=== PATIENT | female | born 1950 | race Caucasian/White ===

== ENCOUNTER 2024-12-29 17:10 | Inpatient (IN) | payer MEDICARE, OTHER, SELFPAY ==
[2024-12-29 16:08] VITALS: BP 139/73
[2024-12-29 17:06] LABS: Glucose - Point of Care 130 mg/dl (70-99)
--- NOTE | 2024-12-29 17:06 | HPS.HSE ---
Family Physician
-
Family Physician: Gennaro Nguyen
Chief Complaint
-
Chest pain
History of Present Illness
Kamille Brooke, 74-year-old female with a medical history significant for coronary artery disease s/p 2x LAD stents in 2021 and again 2x LAD stents in 2008, presented to [facility] with chest pain on 12-28-24. She was cutting bushes
when she began to experience sudden-onset chest pain and pressure. Called 911 and was brought to the hospital. Given nitroglycerin en route. Chest pain had subsided when she reached the hospital. ECG without ST elevation, but she had up-trending
hs-cTn that peaked at 226. She was transferred to [facility] for potential cardiac catheterization on 12-29-24. She has been asymptomatic since she arrived to our hospital.
Of note, for the past 2 years, she has experienced exertional chest pain that come on after 'working too much'. The pains often come on after she has been 'cutting the bushes for too long'. The pain had not been reproducible with taking long walks
or doing aerobics, which she is regular with.
Medical History
Past Medical History
Past Medical History: Reports CAD, GERD and Hypercholesterolemia
Past Surgical History: Reports Cardiac (2x LAD stent 2001; 2x LAD stent 2008)
Social History
Tobacco: Non-smoker
Alcohol: Occasional
Drug: None
Employment: Retired
Family History
Family History: Not pertinent
Allergies / Home Medications
Allergies reflects when Allergies were last updated in [employer].
Home Medications with original date entered in [employer]
Allergy/Medication List:
Allergies
Allergy/AdvReac Type Severity Reaction Status Date / Time
iodine Allergy Hives Unverified 11/25/08 17:47
lidocaine (Lidocaine) Allergy INFLAMATION Verified 11/25/08 17:47
OF SKIN
WEAR
APPLIED
naproxen Allergy ITCHY Unverified 11/25/08 17:47
NSAIDS (Non-Steroidal Allergy ITCHY Unverified 11/25/08 17:47
Anti-Inflamma
penicillin G Allergy Rash Unverified 11/25/08 17:47
Home Medications
aspirin 81 mg tablet,delayed release 81 mg PO DAILY 11/25/08
lansoprazole 30 mg capsule,delayed release (Prevacid) 30 mg PO BID 11/25/08
nitroglycerin 0.4 mg sublingual tablet 0.4 mg sublingual PRN 11/25/08
olopatadine 0.1 % eye drops (Patanol) 1 drp OPHTHALMIC BID 11/25/08
Cozaar 25 mg PO BID 12/29/24
Fosamax 70 mg PO WEEKLY 12/29/24
Metformin Hcl 500 mg PO BID 12/29/24
Plavix 75 mg PO DAILY 12/29/24
Tolterodine Tartrate Er 4 mg PO DAILY 12/29/24
ezetimibe 20 mg PO DAILY 12/29/24
famotidine 40 mg PO DAILY 12/29/24
metoprolol succinate 25 mg PO BID 12/29/24
simvastatin 20 mg PO DAILY 12/29/24
Review of Systems
-
History Source: Patient
A 12 point ROS was completed and negative except as noted: Yes
Constitutional: Reports No Symptoms
EENT: Reports No Symptoms
Respiratory: Reports No Symptoms
Cardiac: Reports No Symptoms and See HPI
Abdomen/GI: Reports No Symptoms
: Reports No Symptoms
Musculoskeletal: Reports No Symptoms
Skin: Reports No Symptoms
Neurological: Reports No Symptoms
Endocrine: Reports No Symptoms
Hematologic/Lymphatic: Reports No Symptoms
Psych: Reports No Symptoms
Physical Exam
Vital Signs
Vital Signs
Temp Pulse Resp BP Pulse Ox
97.9 F 81 16 139/73 99
12/29/24 16:09 12/29/24 16:45 12/29/24 16:09 12/29/24 16:08 12/29/24 16:09
Physical Exam
General: No Apparent Distress and Comfortable
HEENT: NormoCephalic, Anicteric, Moist mucous membranes, Atraumatic and No Ptosis
Respiratory: Clear and Non Labored Respirations
Cardiac: S1/S2 and Regular Rhythm; No Murmur, Rub or Gallop
GI: Soft and Non Tender
Genito-urinary: No costovertebral tender
Musculoskeletal: No Clubbing, No Cyanosis and No Edema
Skin: IV/Catheter Site
Neuro: Awake, Alert, Oriented, No Motor Deficits and Nonfocal/grossly intact
Psych: Calm and Intact Judgment/Insight
Impression/Plan
-
Hpt-LL-dqixmroqw myocardial infarction
- Continue DAPT with aspirin and clopidogrel.
- On heparin drip.
- Catheterization tomorrow; NPO starting midnight.
- She is allergic (hives) to iodine and will require prevention.
- Prednisone 50 mg 13, 7 and 1 hour before the procedure.
- IV diphenhydramine 25 mg prior to the procedure; IV famotidine 20 mg in AM.
Primary hypertension
- Continue losartan and metoprolol succinate.
Type II diabetes mellitus
- Hold metformin.
- SSI to cover.
- Check A1c.
Hyperlipidemia
- Check panel.
- Continue statin.
- LDL goal <55.
Other medical problems
GERD
Overactive bladder
Thromboprophylaxis: On heparin drip.
Code status: Full.
--- NOTE | 2024-12-29 17:30 | PTCARENOTE ---
Received pt into room 2247 via EMS. AOx3. Denies chest pain or SOB. NSR on the monitor. HR 70-80's. Oriented pt to room. pt ambulating in room ad mayito. Sister at bedside. Call rai within reach.
[2024-12-29 18:13] VITALS: BMI 21.4
[2024-12-29 18:42] LABS: Hematocrit 40.1 % (37.0-47.0); Hemoglobin 13.4 g/dL (12.0-16.0); Mean Corp Hgb Conc. 33.4 g/dL (33.0-37.0); Mean Corpuscular Hgb 29.9 pg (27.0-31.0); Mean Corpuscular Volume 89.5 fL (81.0-99.0); Mean Platelet Volume 10.1 fL (7.4-10.4); Platelet Count 212 10^3/uL (130-400); Red Blood Cell Count 4.48 10^6/uL (4.20-5.40); Red Cell Dist. Width 13.5 % (11.5-14.5); White Blood Cell Count 5.1 10^3/uL (4.8-10.8)
[2024-12-29 18:53] LABS: APTT 27.5 Sec (23.4-35.0)
[2024-12-29 19:32] VITALS: BP 142/80
[2024-12-29] MEDS: TOPROL XL 25 MG PO (19:50)
[2024-12-29] MEDS: COZAAR 25 MG PO (19:50)
[2024-12-29] MEDS: DELTASONE 50 MG PO (19:50)
[2024-12-29] MEDS: LIPITOR 40 MG PO (19:50)
[2024-12-29] MEDS: PROTONIX 40 MG PO (19:50)
[2024-12-29] MEDS: HEPARIN 25000 UNITS/250 ML IV (19:51)
[2024-12-29] MEDS: ZADITOR 1 DROP BOTH EYES (22:07)
[2024-12-29 22:50] LABS: Glucose - Point of Care 136 mg/dl (70-99)
[2024-12-29 23:17] VITALS: BP 131/80
[2024-12-30] VITALS (14 sets, daily range): BP systolic 104–131; BP diastolic 56–87; BMI 21.3
[2024-12-30] MEDS: DELTASONE 50 MG PO ×2 (01:57→06:06)
--- NOTE | 2024-12-30 02:14 | PTCARENOTE ---
Received pt @ change of shift. AAOx3. VSS. Discussed prednisone administration for shift and being NPO @ midnight for C in morning. Pt verbalizes understanding. Call rai within reach.
[2024-12-30 02:23] LABS: Hematocrit 36.6 % (37.0-47.0); Hemoglobin 12.7 g/dL (12.0-16.0); Mean Corp Hgb Conc. 34.7 g/dL (33.0-37.0); Mean Corpuscular Hgb 29.8 pg (27.0-31.0); Mean Corpuscular Volume 85.9 fL (81.0-99.0); Platelet Count 210 10^3/uL (130-400); Red Blood Cell Count 4.26 10^6/uL (4.20-5.40); Red Cell Dist. Width 13.2 % (11.5-14.5); White Blood Cell Count 6.8 10^3/uL (4.8-10.8)
[2024-12-30 02:39] LABS: APTT 52.2 Sec (23.4-35.0)
[2024-12-30 02:47] LABS: Blood Urea Nitrogen 15 mg/dl (7-17); Calcium 9.6 mg/dl (8.4-10.2); Carbon Dioxide 20 mmol/L (22-30); Chloride 112 mmol/L (98-107); Estimated Creatinine Clearance 57 ml/min; Glucose 179 mg/dl (70-99); HDL Cholesterol 64 mg/dl; LDL Cholesterol, Calculated 99 mg/dl; Potassium 4.5 mmol/L (3.5-5.1); Sodium 140 mmol/L (135-145); Total Cholesterol 179 mg/dl (50-199); Triglyceride 83 mg/dl (10-149); Very Low Density Lipoprotein 16 mg/dl (0-30); eGFR > 60.00
[2024-12-30] MEDS: NSS (PRESERVATIVE FREE) 8 ML IV (06:07)
[2024-12-30] MEDS: PEPCID 20 MG IV (06:07)
[2024-12-30] MEDS: ASPIR LOW (ENTERIC COATED) 81 MG PO (08:28)
[2024-12-30] MEDS: PLAVIX 75 MG PO (08:28)
[2024-12-30] MEDS: BENADRYL 25 MG IV (08:29)
[2024-12-30 08:33] LABS: Glucose - Point of Care 182 mg/dl (70-99)
--- NOTE | 2024-12-30 08:35 | W.PN.CD ---
Today's Communication / Plan
-
Cardiac catheterization today to clarify coronary anatomy.
Impression / Plan
-
Impression/Plan: 74 y/o female with NIDDM, HTN, HLD, contrast allergy and CAD s/p prior PCI to LAD (circa 2008) transferred from [facility] with NSTEMI for invasive strategy.
#CAD/NSTEMI
-Acute, threat to life.
-Troponin peaked at 277 at [facility] (5th generation/high sensitivity).
-Prepped for contrast exposure.
-Continue DAPT, statin, metoprolol, heparin gtt.
-Plan for cardiac catheterization today to clarify coronary anatomy.
#NIDDM
-Chronic, stable.
-Hold metformin.
-Patient would likely benefit from GLP-1 agonist as an outpatient.
#HTN
-Chronic, mildly elevated.
-Continue home metoprolol and losartan.
#HLD
-Chronic, stable.
-Total cholesterol = 179, LDL = 99, HDL = 64, Triglycerides = 83.
-Outpatient simvastatin changed to atorvastatin 40 mg daily.
-Goal LDL < 55.
Subjective/Interval History:
No acute events.
No subjective complaints.
Physical Exam
Vital Signs/Labs
Vital Signs
Temp Pulse Resp BP Pulse Ox
36.5 C 92 20 131/83 97
12/30/24 07:59 12/30/24 06:15 12/30/24 07:59 12/30/24 06:13 12/30/24 07:59
12/28/24 12/29/24 12/30/24
11:59 11:59 11:59
Actual Weight 54.6 kg
12/30/24 02:09
12/30/24 02:09
APTT 52.2 Sec (23.4-35.0) H 12/30/24 02:09
Triglycerides 83 mg/dl (10-149) 12/30/24 02:09
LDL Cholesterol, Calc 99 mg/dl 12/30/24 02:09
VLDL Cholesterol, Calc 16 mg/dl (0-30) 12/30/24 02:09
HDL Cholesterol 64 mg/dl 12/30/24 02:09
Physical Exam
Constitutional: No acute distress and Comfortable
EENT: Anicteric and Moist mucous membranes
Cardiovascular: Rhythm & rate is regular, Pedal edema is absent, JVD pressure is normal, S1S2 is normal and Murmur/rub/gallop absent
Respiratory: Respiratory effort normal, Lungs clear to auscul., Wheeze Absent, Crackles Absent and Rhonchi Absent
GI: Soft, Distention absent, Flat, Non tender and Normal bowel sounds
Neuro/Psych: AO x 3
Data Reviewed
-
Date of Service: December 30, 2024
Medical Decision Making: Reviewed Test Results, Independent Historian Assessment and Test Interpretation
EKG: Tracing Personally Visualized and interpreted and Report Reviewed by me
Echo: Ordered by me
Medical Tests (PFT, Pathology etc): Image Personally Visualized and interpreted and Report Reviewed by me
Labs: Labs Reviewed by me
Old Records: Reviewed
[2024-12-30 09:35] LABS: ACT-LR - POC 353 Seconds (116-155)
--- NOTE | 2024-12-30 10:16 | ITS.CL.ANGIO ---
Reproduction Artist - Angioplasty
Angioplasty
Procedure Report:
CARDIAC CATHETERIZATION REPORT
Date of Procedure: 12/30/2024
Referring: EDER Tobin
INDICATION: Known coronary artery disease, non-ST elevation myocardial infarction.
PROCEDURE:
1. Left heart catheterization
2. Coronary angiography.
3. Successful IFR of the proximal circumflex.
4. Successful PCI of the proximal left circumflex.
5. Successful IFR of the proximal RCA.
A total of 62 minutes of procedural/moderate sedation was utilized. An independent medical file clerk was present to assist with and help manage the patient's level of consciousness and physiologic status.
ACCESS:
1. 6 [place] right common femoral artery using a modified Seldinger technique with a micropuncture kit under ultrasound guidance.
CATHETERS:
1. 5 [place]ian JR4.
2. 5 [place]ian JL 3.5.
3. 6 [place]ian EBU 4.0 guiding catheter.
4. 6 [place]ian JR4 guiding catheter.
HEMODYNAMIC DATA
Weight (kg): 54.4
AO (s/d/x, mmHg): 128/66/94
LV (s/x mmHg): 128/8
LEFT VENTRICULOGRAPHY: Not performed.
CORONARY ANGIOGRAPHY
Dominance: Right.
Left Main: Normal size, bifurcating vessel. There is no coronary artery disease.
LAD: Normal size vessel giving rise to several small diagonals. Patent stents are observed in the proximal and mid vessel with approximately 20% in-stent restenosis.
Ramus: Congenitally absent.
Circumflex: Large size, nondominant vessel giving rise to 1 large obtuse marginal. There is a 70% lesion in the proximal circumflex, proximal to the bifurcation point.
RCA: Small size, dominant vessel. There is a 70%, hazy lesion in the proximal RCA. The RPDA is small, approximately 1 mm in diameter with a 50% lesion in its midportion.
INTERVENTION(S)
1. Successful IFR of the 70% proximal circumflex lesion, demonstrating occlusive disease (IFR = 0.87).
2. Successful PCI of the occlusive 70% proximal circumflex lesion (Medtronic [place] 3.0 x 12 MONIQUE, postdilated with a 3.0 NC balloon) with reduction in stenosis to 0%, maintaining FARNAZ-3 flow.
3. Successful IFR of the 70% proximal RCA lesion, demonstrating nonocclusive disease (IFR = 0.95).
Narrative:
The decision was made to perform physiologic testing. The diagnostic catheter was removed over a wire and exchanged for a(n) 6 [place]ian EBU 4.0 guiding catheter. The guiding catheter was advanced into the ascending aorta and seated in the left main
coronary artery. Additional heparin was given to obtain an ACT greater than 250 seconds. An iFR wire was zeroed outside of the body, then inserted into the guiding sheath. The wire was advanced and the transducer was normalized just outside of the
guiding catheter tip. The wire was advanced into the distal. Three iFR measurements were taken. The lesion was determined to be occlusive (0.87).
The decision was made to proceed with percutaneous coronary intervention. A Power Turn Flex wire was advanced into the distal obtuse marginal. The Omni wire was maintained in the distal circumflex to kike the bifurcation of the vessels for
protection. The 70% proximal circumflex lesion was predilated with a 2.0 x 12 semi-compliant balloon to 12 maya. The semi-compliant balloon was removed and a Medtronic [place] 3.0 x 12 drug-eluting stent was advanced. The stent was deployed at
12 atmospheres. The stent balloon was removed. A 3.0 x 8 noncompliant balloon was advanced into the stent and the stent was postdilated to 12 atmospheres in the distal margin and 14 maya in the proximal margin. Angiography was performed in orthogonal
views, confirming good stent expansion and an excellent angiographic result. The coronary wire was withdrawn and the guide was disengaged from the artery.
We then turned our attention to the 70% proximal RCA lesion. The decision was made to perform physiologic testing. The 6 [place] EBU 4.0 guiding catheter was removed over a wire and exchanged for a(n) 6 [place]ian JR4 guiding catheter. The guiding
catheter was advanced into the ascending aorta and seated in the right coronary artery. The iFR wire was zeroed outside of the body, then inserted into the guiding sheath. The wire was advanced and the transducer was normalized just outside of the
guiding catheter tip. The wire was advanced into the mid RCA. Three iFR measurements were taken. The 70% proximal RCA lesion was determined to be nonocclusive (0.95). The coronary wire was withdrawn and the guide was disengaged from the artery.
Closure Device: 6 [place]ian Angio-Seal.
Radiation (mGy): 425.77
DAP (cm2.Gy): 30.3356
Fluoroscopy time (minutes): 11.0
CONCLUSIONS
1. Right dominant circulation with a nonocclusive 70% lesion in the proximal RCA (IFR = 0.95), patent stents in the proximal and mid LAD with 20% in-stent restenosis and an occlusive, 70% lesion in the proximal circumflex (IFR = 0.87) status post
successful PCI (Medtronic [place] 3.0 x 12 MONIQUE, postdilated with a 3.0 NC balloon) with reduction in stenosis to 0%, maintaining FARNAZ-3 flow.
2. Normal filling pressures (LVEDP = 8 mmHg at 54.4 kg).
RECOMMENDATIONS:
1. Expectant management after cardiac catheterization via right common femoral approach.
2. Limited weight bearing for one week.
3. Maintain dual antiplatelet therapy with aspirin and clopidogrel for at least 12 months, followed by aspirin indefinitely.
4. Continue aggressive secondary prevention with high-dose, high potency statin. Goal LDL <55.
5. OMT/GDMT as hemodynamics will tolerate.
6. Echocardiogram ordered and pending.
7. Referral to cardiac rehab.
Copy to: EDER Tobin, Deniz Acosta, D.O., Gennaro Nguyen D.O.
Moiz Mckenzie, DO, FACC, FACP
[2024-12-30 10:23] LABS: ACT-LR - POC > 397 Seconds (116-155)
[2024-12-30] MEDS: NOVOLOG FLEXPEN-LOW RESISTANCE SC (10:42)
[2024-12-30] MEDS: ZADITOR BOTH EYES (11:34)
[2024-12-30] MEDS: TOPROL XL 25 MG PO ×2 (11:35→20:37)
[2024-12-30] MEDS: ZETIA 10 MG PO (11:35)
[2024-12-30] MEDS: PROTONIX 40 MG PO ×2 (11:35→20:36)
[2024-12-30] MEDS: COZAAR 25 MG PO ×2 (11:35→20:36)
--- NOTE | 2024-12-30 12:08 | CM ---
Reviewed chart. Met with Mrs. Brooke to review discharge plans. She states prior to admission she resides alone in a two story home. She states she has a full flight of steps to get to bedroom/full bathroom. She states she has a powder room on
the first floor. She states prior to admission she was independent with ambulation and adls. She state she does not have any DME in the home. She state she has a prescription plan. Medical work-up in progress. The discharge plan is to return home
when medically stable.
--- NOTE | 2024-12-30 12:15 | PTCARENOTE ---
Rec'd pt post cath. R groin is c/d/i. No bleeding/hematoma noted. Tele- SR. HR 70s. VSS. No complaints CP/discomfort/sob. Pt aware of activity restrictions post cath. Currently in bed; call eccelia w/in reach.
[2024-12-30 13:51] LABS: Glucose - Point of Care 164 mg/dl (70-99)
[2024-12-30] MEDS: NOVOLOG FLEXPEN-LOW RESISTANCE 1 UNITS SC (14:12)
[2024-12-30 17:27] LABS: Glucose - Point of Care 365 mg/dl (70-99)
[2024-12-30] MEDS: NOVOLOG FLEXPEN-LOW RESISTANCE 5 UNITS SC (17:27)
[2024-12-30] MEDS: LIPITOR 40 MG PO (17:27)
[2024-12-30] MEDS: ZADITOR 1 DROP BOTH EYES (20:37)
[2024-12-30 21:42] LABS: Glucose - Point of Care 265 mg/dl (70-99)
--- NOTE | 2024-12-31 01:43 | PTCARENOTE ---
Assumed care on pt at 1900, aaox3, denies chest pain/ SOB. Dsg to right groin CDI, no swelling or bruising noted. SR on the monitor, HR 70-90's. Call rai within reach, POC on going.
[2024-12-31 04:18] VITALS: BP 109/70
[2024-12-31 04:34] VITALS: BMI 21.6
[2024-12-31 05:22] LABS: Hematocrit 34.6 % (37.0-47.0); Hemoglobin 11.7 g/dL (12.0-16.0); Mean Corp Hgb Conc. 33.8 g/dL (33.0-37.0); Mean Corpuscular Hgb 30.1 pg (27.0-31.0); Mean Corpuscular Volume 88.9 fL (81.0-99.0); Mean Platelet Volume 10.7 fL (7.4-10.4); Platelet Count 243 10^3/uL (130-400); Red Blood Cell Count 3.89 10^6/uL (4.20-5.40); Red Cell Dist. Width 13.3 % (11.5-14.5); White Blood Cell Count 9.9 10^3/uL (4.8-10.8)
[2024-12-31 05:45] LABS: Blood Urea Nitrogen 23 mg/dl (7-17); Carbon Dioxide 23 mmol/L (22-30); Chloride 110 mmol/L (98-107); Estimated Creatinine Clearance 45 ml/min; Glucose 209 mg/dl (70-99); Potassium 3.9 mmol/L (3.5-5.1); Sodium 142 mmol/L (135-145); eGFR > 60.00
--- NOTE | 2024-12-31 06:57 | W.PN.CD ---
Today's Communication / Plan
-
DAPT.
Atorvastatin.
Echo.
Discharge planning.
Impression / Plan
-
Impression/Plan: 74 y/o female with NIDDM, HTN, HLD, contrast allergy and CAD s/p prior PCI to LAD (circa 2008) transferred from [facility] with NSTEMI for invasive strategy.
#CAD/NSTEMI
-Acute, threat to life.
-Troponin peaked at 277 at [facility] (5th generation/high sensitivity).
-Catheterization revealed non-occlusive proximal RCA disease (iFR = 0.95), patent stents in the LAD and occlusive LCx disease (iFR = 0.87) s/p successful PCI (Medtronic Chandu 3.0 x 12 MONIQUE).
-DAPT with aspirin and clopidogrel.
-Secondary prevention with statin.
-Echocardiogram ordered and pending.
#NIDDM
-Chronic, stable.
-Resume metformin tomorrow.
-Patient would likely benefit from GLP-1 agonist as an outpatient.
#HTN
-Chronic, mildly elevated.
-Continue home metoprolol and losartan.
#HLD
-Chronic, stable.
-Total cholesterol = 179, LDL = 99, HDL = 64, Triglycerides = 83.
-Outpatient simvastatin changed to atorvastatin 40 mg daily.
-Goal LDL < 55.
Subjective/Interval History:
PCI yesterday for obstructive LCx disease.
Feels well.
Labs stable.
DATA:
Cardiac Catheterization/PCI, 12/30/2024:
CONCLUSIONS
1. Right dominant circulation with a nonocclusive 70% lesion in the proximal RCA (IFR = 0.95), patent stents in the proximal and mid LAD with 20% in-stent restenosis and an occlusive, 70% lesion in the proximal circumflex (IFR = 0.87) status post
successful PCI (Medtronic [place] 3.0 x 12 MONIQUE, postdilated with a 3.0 NC balloon) with reduction in stenosis to 0%, maintaining FARNAZ-3 flow.
2. Normal filling pressures (LVEDP = 8 mmHg at 54.4 kg).
Physical Exam
Vital Signs/Labs
Vital Signs
Temp Pulse Resp BP Pulse Ox
36.4 C 66 18 118/61 95
12/31/24 04:18 12/31/24 01:30 12/31/24 04:18 12/30/24 22:29 12/31/24 04:18
12/29/24 12/30/24 12/31/24
11:59 11:59 11:59
Actual Weight 54.6 kg 55.2 kg
12/31/24 04:26
12/31/24 04:26
APTT Cancelled 12/30/24 09:25
Triglycerides 83 mg/dl (10-149) 12/30/24 02:09
LDL Cholesterol, Calc 99 mg/dl 12/30/24 02:09
VLDL Cholesterol, Calc 16 mg/dl (0-30) 12/30/24 02:09
HDL Cholesterol 64 mg/dl 12/30/24 02:09
Physical Exam
Constitutional: No acute distress and Comfortable
EENT: Anicteric and Moist mucous membranes
Cardiovascular: Rhythm & rate is regular, Pedal edema is absent, JVD pressure is normal, S1S2 is normal and Murmur/rub/gallop absent
Respiratory: Respiratory effort normal, Lungs clear to auscul., Wheeze Absent, Crackles Absent and Rhonchi Absent
GI: Soft, Distention absent, Flat, Non tender and Normal bowel sounds
Neuro/Psych: AO x 3
Other: Cath Site (Right femoral access site is C/D/I.)
Data Reviewed
-
Date of Service: December 31, 2024
Medical Decision Making: Reviewed Test Results, Independent Historian Assessment and Test Interpretation
EKG: Tracing Personally Visualized and interpreted and Report Reviewed by me
Echo: Tracing Personally Visualized and interpreted and Report Reviewed by me
X-Ray/CT/US/MRI/NUC/PET: Image Personally Visualized and interpreted and Report Reviewed by me
Medical Tests (PFT, Pathology etc): Image Personally Visualized and interpreted and Report Reviewed by me
Labs: Labs Reviewed by me
[2024-12-31 07:16] VITALS: BP 118/64
[2024-12-31 08:07] LABS: Glucose - Point of Care 164 mg/dl (70-99)
[2024-12-31] MEDS: PLAVIX 75 MG PO (08:44)
[2024-12-31] MEDS: COZAAR 25 MG PO (08:45)
[2024-12-31] MEDS: PROTONIX 40 MG PO (08:45)
[2024-12-31] MEDS: TOPROL XL 25 MG PO (08:45)
[2024-12-31] MEDS: ASPIR LOW (ENTERIC COATED) 81 MG PO (08:45)
[2024-12-31] MEDS: NOVOLOG FLEXPEN-LOW RESISTANCE 1 UNITS SC ×2 (08:45→13:42)
[2024-12-31] MEDS: ZETIA 10 MG PO (08:45)
[2024-12-31] MEDS: ZADITOR BOTH EYES (08:46)
--- NOTE | 2024-12-31 09:54 | CM ---
Reviewed chart. Met with Mrs. Brooke to review discharge plans. She states she is feeling well and maybe able to go home soon. Prior to admission she resides alone in a two story home. She has a full flight of steps to get to bedroom/full
bathroom. She has a powder room on the first floor. Prior to admission she was independent with ambulation and adls. She does not have any DME in the home. She has a prescription plan. Medical work-up in progress. The discharge plan is to return
home when medically stable.
--- NOTE | 2024-12-31 11:00 | CARDSERVLU ---
Echocardiogram with [facility] completed after protocol screening completed. Allergies verified.
Patent IV site: __Left FA___
IV site flushed with 0.9% NaCl pre and post administration.
Diluted bolus method utilized to enhance visualization of ventricular king.
Total volume given: _2.5___ mL
Patient tolerated all procedures well without complications.
--- NOTE | 2024-12-31 11:31 | PTCARENOTE ---
Patient walking in room. AO x3. Right femeeral site CDI. NSR, denies pain or shortness of breath. Awaiting Echo and results prior to discharge to home
[2024-12-31 11:36] VITALS: BP 102/64
[2024-12-31 12:12] LABS: Glucose - Point of Care 161 mg/dl (70-99)
--- NOTE | 2024-12-31 13:47 | PTCARENOTE ---
Discharge instructions reviewed with patient, she verbalized understanding. IV and telemetry removed. All discharge paperwork and stent card given to patient. Patient sisters will be driving her home.
--- NOTE | 2024-12-31 14:08 | PTCARENOTE ---
Patient escorted to main lobby and assisted into her sisters car
--- NOTE | 2024-12-31 16:42 | W.DS.TRANS ---
DC Summary - General Utility Worker
-
Discharge Instructions:
Discharge Diagnosis/Procedures NSTEMI, Angioplasty with stent to left
circumflex artery
Diet Low Cholesterol,Diabetic, Carb Controlled
Driving Restrictions No driving for 24 hours
Other Services Cardiac Rehab
Instructions:
Stand-Alone Forms: DC Instructions- Cath/EP Lab
Changes to Home Medications: Yes
Discharge Medications:
DC Medications w/original date entered in [employer]
aspirin 81 mg tablet,delayed release 81 mg PO DAILY 11/25/08
lansoprazole 30 mg capsule,delayed release (Prevacid) 30 mg PO BID 11/25/08
nitroglycerin 0.4 mg sublingual tablet 0.4 mg sublingual PRN 11/25/08
olopatadine 0.1 % eye drops (Patanol) 1 drp OPHTHALMIC BID 11/25/08
Cozaar 25 mg PO BID 12/29/24
Fosamax 70 mg PO WEEKLY 12/29/24
Metformin Hcl 500 mg PO BID 12/29/24
Held on 12/31/24. Instructions: Resume on 01/01/25.
Plavix 75 mg PO DAILY 12/29/24
Tolterodine Tartrate Er 4 mg PO DAILY 12/29/24
ezetimibe 10 mg PO DAILY 12/29/24
famotidine 40 mg PO DAILY 12/29/24
metoprolol succinate 25 mg PO BID 12/29/24
atorvastatin 40 mg tablet 40 mg PO QPM #90 tabs 12/31/24
Home Medication Changes
stop simvastatin, new to atorvastatin
Pending Results: No
== END 2024-12-31 15:35 | disposition home or self-care (01) | DRG 322 ==
LOC: IVU 17:10
PROVIDERS: Nurse Practitioner Adult Health; Student in an Organized Health Care Education/Training Program; ADMITTING PHYSICIAN Internal Medicine Cardiovascular Disease; FAMILY PHYSICIAN Family Medicine
PROC: 027034Z Dilation of Coronary Artery, One Artery with Drug-eluting Intraluminal Device, Percutaneous Approach (ICD-10-PCS; 2024-12-30)
PROC: 4A023N7 Measurement of Cardiac Sampling and Pressure, Left Heart, Percutaneous Approach (ICD-10-PCS; 2024-12-30)
PROC: 4A033BC Measurement of Arterial Pressure, Coronary, Percutaneous Approach (ICD-10-PCS; 2024-12-30)
PROC: B2111ZZ Fluoroscopy of Multiple Coronary Arteries using Low Osmolar Contrast (ICD-10-PCS; 2024-12-30)
DX: I21.4 Non-ST elevation (NSTEMI) myocardial infarction (principal); E11.9 Type 2 diabetes mellitus without complications; K21.9 Gastro-esophageal reflux disease without esophagitis; N32.81 Overactive bladder; I10 Essential (primary) hypertension; I25.10 Atherosclerotic heart disease of native coronary artery without angina pectoris; E78.00 Pure hypercholesterolemia, unspecified; Z91.041 Radiographic dye allergy status; Z95.5 Presence of coronary angioplasty implant and graft; Z88.6 Allergy status to analgesic agent; Z88.4 Allergy status to anesthetic agent; Z88.0 Allergy status to penicillin; Z88.8 Allergy status to other drugs, medicaments and biological substances; Z79.82 Long term (current) use of aspirin; Z79.84 Long term (current) use of oral hypoglycemic drugs
CPT/HCPCS: 80048; 80061; 82962; 83036; 85027; 85347; 85730; 93005; 93306; 93458; 93799; 99152; 99153; C1725; C1760; C1769; C1874; C1887; C1894; C9600; Q9950; Q9967

== ENCOUNTER 2025-02-23 11:05 | Outpatient (RCR) | payer MEDICARE, OTHER, SELFPAY ==
[2025-01-27 12:16] LABS: Glucose - Point of Care 150 mg/dl (70-99)
[2025-01-27 13:12] LABS: Glucose - Point of Care 102 mg/dl (70-99)
[2025-02-07 11:19] LABS: Glucose - Point of Care 164 mg/dl (70-99)
[2025-02-07 12:19] LABS: Glucose - Point of Care 133 mg/dl (70-99)
[2025-02-14 11:04] LABS: Glucose - Point of Care 162 mg/dl (70-99)
[2025-02-14 12:08] LABS: Glucose - Point of Care 100 mg/dl (70-99)
[2025-02-18 10:59] LABS: Glucose - Point of Care 153 mg/dl (70-99)
[2025-02-18 11:49] LABS: Glucose - Point of Care 113 mg/dl (70-99)
[2025-02-23 10:53] LABS: Glucose - Point of Care 145 mg/dl (70-99)
[2025-02-23 11:50] LABS: Glucose - Point of Care 97 mg/dl (70-99)
== END 2025-02-23 23:59 | disposition home or self-care (01) ==
LOC: CRHB 11:05
PROVIDERS: ATTENDING PHYSICIAN Internal Medicine Cardiovascular Disease; FAMILY PHYSICIAN Family Medicine
DX: I25.10 Atherosclerotic heart disease of native coronary artery without angina pectoris (principal); I25.2 Old myocardial infarction; Z95.5 Presence of coronary angioplasty implant and graft
CPT/HCPCS: 82962; G0422; G0423

== ENCOUNTER 2025-03-25 13:58 | Outpatient (RCR) | payer MEDICARE, OTHER, SELFPAY ==
[2025-02-25 11:02] LABS: Glucose - Point of Care 108 mg/dl (70-99)
[2025-02-25 12:02] LABS: Glucose - Point of Care 99 mg/dl (70-99)
== END 2025-03-25 23:59 | disposition home or self-care (01) ==
LOC: CRHB 13:58
PROVIDERS: ATTENDING PHYSICIAN Internal Medicine Cardiovascular Disease; FAMILY PHYSICIAN Family Medicine
DX: I25.10 Atherosclerotic heart disease of native coronary artery without angina pectoris (principal); Z95.5 Presence of coronary angioplasty implant and graft; I25.2 Old myocardial infarction
CPT/HCPCS: 82962; G0422; G0423

== ENCOUNTER 2025-04-25 11:51 | Outpatient (RCR) | payer MEDICARE, OTHER, SELFPAY | END 2025-04-25 23:59 | disposition home or self-care (01) | LOC: CRHB 11:51 | PROVIDERS: ATTENDING PHYSICIAN Internal Medicine Cardiovascular Disease; FAMILY PHYSICIAN Family Medicine | DX: I25.2 Old myocardial infarction (principal); I25.10 Atherosclerotic heart disease of native coronary artery without angina pectoris; Z95.5 Presence of coronary angioplasty implant and graft | CPT/HCPCS: G0422; G0423 ==

== ENCOUNTER 2025-05-23 11:46 | Outpatient (RCR) | payer MEDICARE, OTHER, SELFPAY | END 2025-05-23 23:59 | disposition home or self-care (01) | LOC: CRHB 11:46 | PROVIDERS: ATTENDING PHYSICIAN Internal Medicine Cardiovascular Disease; FAMILY PHYSICIAN Family Medicine | DX: I25.10 Atherosclerotic heart disease of native coronary artery without angina pectoris (principal); I25.2 Old myocardial infarction; Z95.5 Presence of coronary angioplasty implant and graft; I21.4 Non-ST elevation (NSTEMI) myocardial infarction | CPT/HCPCS: G0422; G0423 ==

== ENCOUNTER 2025-05-30 10:26 | Outpatient (RCR) | payer MEDICARE, OTHER, SELFPAY | END 2025-05-30 23:59 | disposition home or self-care (01) | LOC: CRHB 10:26 | PROVIDERS: ATTENDING PHYSICIAN Internal Medicine Cardiovascular Disease; FAMILY PHYSICIAN Family Medicine | DX: I25.10 Atherosclerotic heart disease of native coronary artery without angina pectoris (principal); I25.2 Old myocardial infarction; Z95.5 Presence of coronary angioplasty implant and graft | CPT/HCPCS: 93798; G0423 ==